=== PATIENT | male | born 1990 | race Caucasian/White ===

== ENCOUNTER 2020-03-29 14:58 | Emergency (ER) | payer OTHER ==
[~2020-03-29] VITALS: Ht 165.1 cm; Wt 95.3 kg
[2020-03-29] MEDS ORDERED: INTESTINEX680 M2 PO (18:37)
[2020-03-29] MEDS ORDERED: AMOX1TAB5 PO (18:37)
[2020-03-29] MEDS ORDERED: KETO10TA2 PO (18:37)
== END 2020-03-29 18:45 | disposition home or self-care (01) ==
LOC: ER 14:58
DX: S61.112A Laceration without foreign body of left thumb with damage to nail, initial encounter (principal); W26.8XXA Contact with other sharp object(s), not elsewhere classified, initial encounter; Y93.89 Activity, other specified; Y92.89 Other specified places as the place of occurrence of the external cause; Y99.8 Other external cause status